=== PATIENT | female | born 1970 | race Caucasian/White ===

== ENCOUNTER 2018-06-05 14:18 | Emergency (ER) | payer OTHER ==
[~2018-06-05] VITALS: Ht 162.6 cm; Wt 74.8 kg
[~2018-06-05 14:18] MED LIST: BENADRYL25 MG PO; HYDROXYZINE HCL25 M2 PO; LASIX 20 MG TAB20 MG PO; LEVOTHYROXIN0.175 MG PO; NORVASC10 MG PO; PRINIVIL20 MG PO; SALAGEN5 MG PO; TRIAMCINOLONE A80 G2 TOP; TUSSIONEX PENN473 ML PO; VENTOLIN HFA 1818 GM INH; ZPAK PO
[2018-06-05 14:47] LABS: HEMATOCRIT 49.4 % (37.0-47.0); MCHC 34.3 g/dL (28.0-37.0); MCV 93.3 fL (80.0-100.0); RBC 5.3 mil/uL (4.20-5.00); RDW 13.8 % (10.5-14.5); WBC 6.4 thou/uL (4.0-11.0)
[2018-06-05 15:00] LABS: ANION GAP 15 mmol/L (7-16); BUN 54 mg/dL (7-18); CALCIUM 8.1 mg/dL (8.5-10.1); CHLORIDE 102 mmol/L (98-107); CO2 19 mmol/L (21-32); CREATININE 5.8 mg/dL (0.6-1.0); GLUCOSE 154 mg/dL (74-106); POTASSIUM 5.3 mmol/L (3.5-5.1); SODIUM 136 mmol/L (136-145)
[2018-06-05] MEDS ORDERED: WELLBUTRIN XL150 MG PO (15:00)
[2018-06-05] MEDS ORDERED: SYNTHROID150 MCG PO (15:00)
[2018-06-05] MEDS ORDERED: COREG25 MG PO (15:00)
[2018-06-05 15:08] LABS: SGOT 23 U/L (15-37); SGPT 27 U/L (30-65); TOTAL BILIRUBIN 0.2 mg/dL (<0.1-1.0); TOTAL PROTEIN 6.1 g/dL (6.4-8.2); TROPONIN-I <0.06 ng/mL (<0.06)
[2018-06-05 15:55] LABS: URINE BILIRUBIN NEGATIVE (Negative); URINE BLOOD TRACE (Negative); URINE CLARITY CLEAR; URINE COLOR YELLOW; URINE GLUCOSE-RANDOM* NEGATIVE (Negative); URINE KETONES NEGATIVE (Negative); URINE LEUKOCYTES-REFLEX NEGATIVE (Negative); URINE NITRITE-REFLEX NEGATIVE (Negative); URINE PROTEIN (DIPSTICK) 1+ (Negative); URINE UROBILINOGEN 0.2 E.U./dl (0.2-1.0)
[2018-06-05 16:07] LABS: BACTERIA-REFLEX None Seen /HPF (None Seen); CASTS None Seen /LPF (None Seen); CRYSTALS None Seen /LPF (None Seen); SQUAMOUS 0-3 Few /LPF (0-3); URINE RBC None Seen /HPF (0-2); URINE WBC-REFLEX None Seen /HPF (0-5)
[2018-06-05] MEDS ORDERED: PEPCID20 MG PO (16:57)
[2018-06-05] MEDS ORDERED: ZOFRAN4 MG PO (16:57)
[2018-06-05] MEDS ORDERED: DIPHENHIST50 MG PO (16:57)
[2018-06-05 17:36] VITALS: BP 107/74
== END 2018-06-05 17:36 | disposition home or self-care (01) ==
LOC: ER 14:18
PROVIDERS: Student in an Organized Health Care Education/Training Program
DX: I95.1 Orthostatic hypotension (principal); T45.4X5A Adverse effect of iron and its compounds, initial encounter; R11.2 Nausea with vomiting, unspecified; K21.9 Gastro-esophageal reflux disease without esophagitis; I10 Essential (primary) hypertension; Z85.850 Personal history of malignant neoplasm of thyroid; Z90.89 Acquired absence of other organs; Y92.89 Other specified places as the place of occurrence of the external cause